=== PATIENT | male | born 1990 | race Caucasian/White ===

== ENCOUNTER 2016-08-01 12:55 | Emergency (ER) | payer OTHER ==
[2016-08-01 13:33] VITALS: BMI 25.8
[2016-08-01] MEDS ORDERED: SODIUM CHLORIDE 1,000 ML IV STA (16:39)
[2016-08-01] MEDS ORDERED: ACETAMINOPHEN 325 MG TABLET (FP) PO ONE (16:40)
--- NOTE | 2016-08-01 16:48 | PDOC ---
History of Present Illness - General History Source: Patient, Spouse - History of Present Illness Timing/Duration: reports: other Associated Symptoms: reports: chest pain/soreness, cough, fever/chills, muscle aches, shortness of breath. denies: earache, facial pain, headache, nasal congestion, nasal drainage, sore throat, wheezing <Lora Borjas - Last Filed: 08/01/16 19:02> <Gustabo Gorman - Last Filed: 08/01/16 21:01> - General Chief Complaint: SIRS, Suspected/Possible Stated Complaint: CHEST PAIN Time Seen by Provider: 08/01/16 16:37 Past History - Past Medical History Other medical history: PT DENIES MECICAL HX - Psycho/Social/Smoking Cessation Hx Suicidal Ideation: No Smoking History: Current some day smoker Have you smoked in the past 12 months: Yes Number of Cigarettes Smoked Daily: 0 Information on smoking cessation initiated: No Hx Alcohol Use: No Drug/Substance Use Hx: No Substance Use Type: None <Lora Borjas - Last Filed: 08/01/16 19:02> <Gustabo Gorman - Last Filed: 08/01/16 21:01> - Past Medical History Allergies/Adverse Reactions: Allergies Allergy/AdvReac Type Severity Reaction Status Date / Time No Known Allergies Allergy Verified 08/01/16 13:33 Home Medications: Ambulatory Orders NK [No Known Home Medication] 04/30/16 Review of Systems - Review of Systems Constitutional: Yes: Fever, Malaise, Weakness HEENTM: No: Ear Pain, Throat Pain Respiratory: Yes: Cough, Shortness of Breath. No: Wheezing Cardiac (ROS): Yes: Chest Pain. No: Lightheadedness ABD/GI: No: Diarrhea, Nausea, Vomiting : No: Dysuria Neurological: No: Headache, Dizziness <Lora Borjas Last Filed: 08/01/16 19:02> *Physical Exam - Vital Signs Last Vital Signs Temp Pulse Resp BP Pulse Ox 100.7 F H 102 H 112 H 127/73 94 L 08/01/16 13:29 08/01/16 13:29 08/01/16 13:29 08/01/16 13:29 08/01/16 13:29 - Physical Exam Comments: 08/01/16 16:47 ill appearing General Appearance: Yes: Appropriately Dressed HEENT: positive: Normal Voice Neck: positive: Supple. negative: Lymphadenopathy (R), Lymphadenopathy (L) Respiratory/Chest: positive: Lungs Clear, Normal Breath Sounds. negative: Respiratory Distress Cardiovascular: positive: S1, S2, Tachycardia Gastrointestinal/Abdominal: positive: Soft. negative: Tender Extremity: positive: Normal Inspection Integumentary: positive: Dry, Warm Neurologic: positive: Fully Oriented, Alert, Normal Mood/Affect <Lora Borjas - Last Filed: 08/01/16 19:02> - Vital Signs Last Vital Signs Temp Pulse Resp BP Pulse Ox 100.7 F H 102 H 112 H 127/73 94 L 08/01/16 13:29 08/01/16 13:29 08/01/16 13:29 08/01/16 13:29 08/01/16 13:29 <Gustabo Gorman - Last Filed: 08/01/16 21:01> ED Treatment Course - LABORATORY CBC & Chemistry Diagram: 08/01/16 16:50 08/01/16 16:50 - RADIOLOGY Radiology Studies Ordered: Category Date Time Status CHEST X-RAY PORTABLE* [RAD] Stat Radiology 08/01/16 16:40 Ordered <Lora Borjas - Last Filed: 08/01/16 19:02> - LABORATORY CBC & Chemistry Diagram: 08/01/16 16:50 08/01/16 16:50 - ADDITIONAL ORDERS Additional order review: Laboratory Results 08/01/16 08/01/16 08/01/16 16:50 16:50 16:39 Sodium 139 Potassium 4.0 Chloride 100 Carbon Dioxide 28 Anion Gap 11 BUN 13 Creatinine 0.8 Creat Clearance w eGFR > 60 Random Glucose 90 Lactic Acid 0.677 Calcium 8.5 Total Bilirubin 0.5 AST 27 ALT 42 Alkaline Phosphatase 109 Total Protein 7.2 Albumin 4.1 Urine Color Yellow Urine Appearance Clear Urine pH 5.0 Ur Specific [place] 1.024 Urine Protein Negative Urine Glucose (UA) Negative Urine Ketones 2+ H Urine Blood Negative Urine Nitrite Negative Urine Bilirubin Negative Urine Urobilinogen 2.0 e.u/dl Ur Leukocyte Esterase Negative 08/01/16 16:57 Influenza Types A,B Antigen (VALARIE) - Final Nasopharyngeal Swab - Final 08/01/16 16:50 RBC 4.96 MCV 90.4 MCHC 34.3 RDW 13.2 MPV 8.5 Neutrophils % 67.5 Lymphocytes % 19.9 Monocytes % 10.4 H Eosinophils % 0.6 Basophils % 1.6 - Medications Given in the ED: ED Medications Discontinued Medications Generic Name Dose Route Start Last Admin Trade Name Anastasia PRN Reason Stop Dose Admin Acetaminophen 650 mg 08/01/16 16:40 08/01/16 17:11 Tylenol - PO 08/01/16 16:41 650 mg ONCE ONE Administration Sodium Chloride 1,000 mls @ 1,000 mls/hr 08/01/16 16:39 08/01/16 16:58 Normal Saline - IV 08/01/16 17:38 1,000 mls/hr ASDIR STA Administration <Gustabo Gorman - Last Filed: 08/01/16 21:01> Progress Note - Progress Note Progress Note: CXR- NORMAL. NO ACUTE DISEASE. INFLUENZA- NEG. BLOOD WORK- WNL. PROB- VIRAL SYNDROME. D/C TO HOME. <Gustabo Gorman - Last Filed: 08/01/16 21:01> Medical Decision Making - Medical Decision Making 08/01/16 16:45 25-year-old male, no significant history, here with malaise with body aches, cough, pleuritic chest pain, ?sob, ever and chills that started suddenly 3 days ago. Daughter diagnosed with influenza recently. Denies GOLD, dizziness, photophobia, neck stiffness, nausea, vomiting or diarrhea. Has not been taking anything for symptoms See exam Viral syndrome Flu suspected, r/o PNA Pt mildly tachy, febrile and hypoxic to 94 % on RA and ill appearing -IVF -tylenol -labs -cxr -reassess 08/01/16 18:02 08/01/16 18:49 Labs, including influenza, wnl. Pt reports feeling better. CXR pending. Will rpt vitals <Lora Borjas - Last Filed: 08/01/16 19:02> *DC/Admit/Observation/Transfer <Lora Borjas - Last Filed: 08/01/16 19:02> - Discharge Dispostion Admit: No <Gustabo Gorman - Last Filed: 08/01/16 21:01> Diagnosis at time of Disposition: Viral infection - Discharge Dispostion Disposition: HOME Condition at time of disposition: Stable - Patient Instructions Printed Discharge Instructions: DI for Viral Syndrome Additional Instructions: FOLLOW UP WITH YOUR PRIMARY CARE PROVIDER. MOTRIN OR TYLENOL FOR PAIN/FEVER. DRINK LOTS OF FLUIDS. REST. Print Language: LAO - Post Discharge Activity Work/School Note: Back to Work
[2016-08-01 17:06] LABS: BASOPHIL 1.6 % (0-2.0); EOSINOPHIL 0.6 % (0-4.5); MCH 31.1 pg (25.7-33.7); MCHC 34.3 g/dl (32.0-35.9); MEAN CELL VOLUME 90.4 fl (80-96); MEAN PLT VOLUME 8.5 fl (7.5-11.1); NEUTROPHILS 67.5 % (42.8-82.8); PLATELET COUNT 191 K/MM3 (134-434); RDW 13.2 % (11.9-15.9); WHITE BLOOD COUNT 7.5 K/mm3 (4.0-10.0)
[2016-08-01] MEDS ORDERED: ACETAMINOPHEN 325 MG TABLET (FP) ONE (17:09)
[2016-08-01 17:42] LABS: ALBUMIN 4.1 g/dl (3.4-5.0); ALK PHOS 109 U/L (45-117); ANION GAP 11 (8-16); BILIRUBIN,TOTAL 0.5 mg/dL (0.2-1.0); CALCIUM 8.5 mg/dL (8.5-10.1); CO2 28 mmol/L (21-32); CREATININE 0.8 mg/dL (0.7-1.3); GLUCOSE,RANDOM 90 mg/dL (74-106); SGOT/AST 27 U/L (15-37); SGPT/ALT 42 U/L (12-78); TOT PROT 7.2 g/dl (6.4-8.2)
[2016-08-01 19:53] LABS: URINE APPEARANCE CLEAR; URINE BILIRUBIN NEGATIVE (NEGATIVE); URINE BLOOD NEGATIVE (NEGATIVE); URINE COLOR YELLOW; URINE GLUCOSE (UA) NEGATIVE (NEGATIVE); URINE KETONE 2+ (NEGATIVE); URINE LEUK ESTERASE NEGATIVE (NEGATIVE); URINE NITRITE NEGATIVE (NEGATIVE); URINE PROTEIN NEGATIVE (NEGATIVE); URINE UROBILINOGEN 2.0 E.U/dl E.U./dl (0.2-1.0)
[2016-08-01] MEDS ORDERED: AZITHROMYCIN 250 MG TABLET (FP) PO ONE (21:04)
[2016-08-01] MEDS ORDERED: predniSONE 20 MG TABLET (UD) PO ONE (21:05)
[2016-08-01] MEDS ORDERED: predniSONE 20 MG TABLET (UD) ONE (21:13)
[2016-08-01 21:31] VITALS: BP 125/72; PULSE 91; TEMP 98.9
== END 2016-08-01 21:30 | disposition home or self-care (01) ==
LOC: JER 12:55
PROC: 3E0337Z Introduction of Electrolytic and Water Balance Substance into Peripheral Vein, Percutaneous Approach (ICD-10-PCS; principal; 2016-08-01)
DX: B34.9 Viral infection, unspecified (principal)
CPT/HCPCS: 36415; 71020-TC; 80053; 81003; 83605; 85025; 87804; 96360; 99284-25

== ENCOUNTER 2018-12-12 23:12 | Inpatient (IN) | payer OTHER ==
[2018-12-12 23:54] VITALS: BMI 27.3
--- NOTE | 2018-12-13 01:30 | PDOC ---
History of Present Illness - General Chief Complaint: Constipation Stated Complaint: CONSTIPATION Time Seen by Provider: 12/13/18 01:29 - History of Present Illness Initial Comments: The pt is a 28M w/ no reported PMH who presents for evaluation of 5 days of abdominal pain. The pain is intermittent, epigastric/RUQ, worse after meals, cramping/sharp, radiates the the remainder of the abdomen, and is not alleviated by anything he can identify. He has not tried taking anything for his pain. He denies sick contacts or having similar symptoms before. Endorses constipation Denies fevers/chills, chest pain, SOB, vomiting, diarrhea, blood in his stool, or changes in sensation 12/13/18 01:39 Past History - Past Medical History Allergies/Adverse Reactions: Allergies Allergy/AdvReac Type Severity Reaction Status Date / Time No Known Allergies Allergy Verified 12/12/18 23:54 Home Medications: Ambulatory Orders Albuterol Sulfate Inhaler - [Ventolin HFA Inhaler -] 1 - 2 inh PO Q4H PRN #1 inhaler 08/01/16 Azithromycin [Zithromax -] 250 mg PO DAILY #4 tablet 08/01/16 predniSONE [Deltasone -] 40 mg PO DAILY #4 tablet 08/01/16 COPD: No - Suicide/Smoking/Psychosocial Hx Smoking History: Never smoked Have you smoked in the past 12 months: No Number of Cigarettes Smoked Daily: 0 Information on smoking cessation initiated: No Hx Alcohol Use: No Drug/Substance Use Hx: No Substance Use Type: None Review of Systems - Review of Systems Able to Perform ROS?: Yes Comments:: GENERAL/CONSTITUTIONAL: No fever or chills. No weakness HEAD, EYES, EARS, NOSE AND THROAT: No change in vision. No ear pain or discharge. No sore throat CARDIOVASCULAR: No chest pain or shortness of breath RESPIRATORY: Denies cough, hemoptysis GASTROINTESTINAL: No vomiting, diarrhea GENITOURINARY: No dysuria, frequency, or change in urination MUSCULOSKELETAL: No joint or muscle swelling or pain. No neck or back pain SKIN: No rash NEUROLOGIC: No headache, vertigo, loss of consciousness, or change in strength/ sensation ENDOCRINE: No increased thirst. No abnormal weight change HEMATOLOGIC/LYMPHATIC: No anemia, easy bleeding, or history of blood clots ALLERGIC/IMMUNOLOGIC: No hives or skin allergy 12/13/18 01:29 Is the patient limited Azeri proficient: No *Physical Exam - Vital Signs Last Vital Signs Temp Pulse Resp BP Pulse Ox 98.8 F 77 16 115/72 100 12/12/18 23:53 12/12/18 23:53 12/12/18 23:53 12/12/18 23:53 12/12/18 23:53 - Physical Exam Comments: GENERAL: Awake, alert, and oriented to person/place/time, in no acute distress HEAD: No signs of trauma, normocephalic, atraumatic EYES: PERRLA, EOMI, sclera anicteric, conjunctiva clear ENT: Hearing grossly normal, nares patent, oropharynx clear without exudates. Moist mucosa LUNGS: No distress, speaks full sentences, clear to auscultation bilaterally HEART: Regular rate and rhythm, normal S1 and S2, no murmurs appreciated, peripheral pulses normal and equal bilaterally ABDOMEN: Soft, RUQ/epigastric/R-sided abdominal pain w/o rebound or guarding, + BS EXTREMITIES: Normal inspection, Normal range of motion, no edema. No clubbing or cyanosis NEUROLOGICAL: Cranial nerves II through XII grossly intact. Normal speech, no focal sensorimotor deficits SKIN: Warm, Dry 12/13/18 01:30 ED Treatment Course - LABORATORY CBC & Chemistry Diagram: 12/13/18 02:12 12/13/18 02:12 Medical Decision Making - Medical Decision Making The pt is a 28M w/ no reported PMH who presents for evaluation of 5 days of a intermittent epigastric/RUQ abdmonial pain w/ associated nausea w/o vomiting Ddx: biliary disease, gastritis, viral syndrome, pancreatitis ED Course CMP, CBC, Lipase RUQ US IVF, Ofirmev, Zofran 12/13/18 01:44 Leukocytosis of 14 US w/o acute pathology 12/13/18 02:45 CT notable for acute appendicitis General surgery consulted Will give Unasyn 3g IV once Plan for admission 12/13/18 03:42 *DC/Admit/Observation/Transfer Diagnosis at time of Disposition: Abdominal pain Qualifiers: Abdominal location: epigastric Qualified Code(s): R10.13 - Epigastric pain Acute appendicitis Qualifiers: Acute appendicitis type: with localized peritonitis Appendicitis gangrene presence: unspecified whether gangrene present Appendicitis perforation presence : unspecified whether perforation present Appendicitis abscess presence: without abscess Qualified Code(s): K35.30 - Acute appendicitis with localized peritonitis, without perforation or gangrene - Discharge Dispostion Condition at time of disposition: Good Decision to Admit order: Yes - Referrals Referrals: [facility] [Provider Group] German Ron MD [Staff Physician] - - Patient Instructions Printed Discharge Instructions: DI for Abdominal Pain-Adult Additional Instructions: You were seen in the Emergency Department for evaluation of abdominal pain. Your labs were unremarkable and your imaging was negative for acute pathology. Review the handout provided at discharge. Follow up with your primary care and gastroenterology referrals. Return to the Emergency Department if you develop fevers/chills, chest pain, inability to tolerate food, worsening symptoms, or any new/concerning symptoms. Se lo atendi en el servicio de urgencias para evaluar el dolor abdominal. Paola laboratorios fueron normales y flores imagen fue negativa para patologa aguda. Revise el folleto provisto al momento del effie. Aracely un seguimiento con paola derivaciones de atencin primaria y gastroenterologa. Regrese al Departamento de Emergencias si presenta fiebre / escalofros, dolor en el pecho, incapacidad para tolerar los alimentos, empeoramiento de los sntomas o cualquier sntoma nuevo o relacionado con ellos. Print Language: WELSH - Post Discharge Activity
--- NOTE | 2018-12-13 01:30 | PDOC ---
Attending Attestation - Resident Resident Name: ZaireLeif almeida - ED Attending Attestation I have performed the following: I have examined & evaluated the patient, The case was reviewed & discussed with the resident, I agree w/resident's findings & plan - HPI HPI: 12/13/18 02:58 28 yo male with right sided abdominal pain - Physicial Exam PE: 12/13/18 02:59 GENERAL: Awake, in no acute distress HEAD: No signs of trauma EYES: ENT:clear without exudates. Moist mucosa NECK: Normal ROM, LUNGS:. Normal work of breathing. HEART: Regular rate and rhythm, ABDOMEN: Soft, nondistended , rlq/Mc Burny's point tenderness with voluntary guarding CHEST WALL: BACK: No midline tenderness. EXTREMITIES:. No erythema, or tenderness NEUROLOGICAL: Alert, SKIN: Warm, Dry - Medical Decision Making 12/13/18 02:59 28 yo male with rlq pain and elevated WBC count CT scan abd/pelvis IVF/antacids/antiemetics
[2018-12-13] MEDS ORDERED: ONDANSETRON 4 MG/2 ML VIAL IVPUSH ONE ×2 (01:38→01:45)
[2018-12-13] MEDS ORDERED: SODIUM CHLORIDE 0.9% 500 ML INFUS.BAG IV ONE (01:38)
[2018-12-13] MEDS ORDERED: FAMOTIDINE 20 MG/50 ML IVPB 20 MG/50 ML MG IVPB ONE ×2 (01:38→01:48)
[2018-12-13] MEDS ORDERED: MAG HYDROX/AL HYDROX/SIMETH 30 ML UNIT-DOSE CUP PO ONE (01:38)
[2018-12-13] MEDS ORDERED: ONDANSETRON 4 MG/2 ML VIAL ONE (01:48)
[2018-12-13] MEDS ORDERED: MAG HYDROX/AL HYDROX/SIMETH 30 ML UNIT-DOSE CUP ONE (01:48)
[2018-12-13 02:22] LABS: BASO % 0.9 % (0-2.0); EOS % 0.7 % (0-4.5); HEMATOCRIT 43.4 % (35.4-49); HEMOGLOBIN 15.2 GM/dL (11.7-16.9); LYMPH % 13.4 % (8-40); MCH 31.5 pg (25.7-33.7); MCHC 34.9 g/dl (32.0-35.9); MEAN CELL VOLUME 90.1 fl (80-96); MEAN PLT VOLUME 8.3 fl (7.5-11.1); MONO % 6.3 % (3.8-10.2); NEUT % 78.7 % (42.8-82.8); PLATELET COUNT 237 K/MM3 (134-434); RBC 4.82 M/mm3 (4.00-5.60); RDW 13.3 % (11.9-15.9); WHITE BLOOD COUNT 14.3 K/mm3 (4.0-10.0)
[2018-12-13 02:39] LABS: BILIRUBIN,TOTAL 0.4 mg/dL (0.2-1); CREATININE 0.8 mg/dL (0.55-1.3); POTASSIUM 4.5 mmol/L (3.5-5.1); TOT PROT 7.2 g/dl (6.4-8.2)
[2018-12-13] MEDS ORDERED: AMPICILLIN NA/SULBACTAM NA 3 GM in SODIUM CHLORIDE 100 ML IVPB ONE (03:47)
--- NOTE | 2018-12-13 04:50 | PN ---
Teaching Attending Note Name of Resident: Zeyad Mujica ATTENDING PHYSICIAN STATEMENT I saw and evaluated the patient. I reviewed the resident's note and discussed the case with the resident. I agree with the resident's findings and plan as documented. SUBJECTIVE: Patient is a 28 year old man with PMH of Tobacco use and asthma who presents for evaluation of 5 days of abdominal pain. The pain is intermittent, epigastric /RUQ, worse after meals and any movement, cramping/sharp, radiates to the remainder of the abdomen, and is not alleviated by anything he can identify. He has not tried taking anything for his pain. He denies any recent travel, consumption of unusual/street food or having similar symptoms before. Had contact yesterday with a neighbour with fever. Has nausea and constipation. Denies fevers, chills, chest pain, SOB, vomiting, diarrhea, or blood in his stool. OBJECTIVE: Alert Vital Signs Period Temp Pulse Resp BP Sys/Mccarthy Pulse Ox Last 24 Hr 98.8 F 77 16 115/72 100 HEENT: No Jaundice, eye redness or discharge, PERRLA, EOMI. Normocephalic, atraumatic. External ears are normal and hearing is grossly intact. No nasal discharge. Neck: Supple, nontender. No palpable adenopathy or thyromegaly. No JVD Chest: Good effort. Clear to auscultation and percussion. Heart: Regular. No S3, rub or murmur Abdomen: Not distended, soft, RLQ tenderness and no HSM. No rebound or guarding. Normal bowel sounds. Ext: Peripheral pulses intact. No leg edema. Skin: Warm and dry. No petechiae, rash or ecchymosis. Neuro: Alert. Oriented x3. CN 2-12 grossly intact. Sensation grossly intact in all four extremities and DTR are symmetric. Psych: Appropriate mood and affect. Good insight. Current Medications Generic Name Dose Route Start Last Admin Trade Name Freq PRN Reason Stop Dose Admin Lactated Ringer's 1,000 mls @ 100 mls/hr 12/13/18 05:30 12/13/18 05:43 Lactated Ringers Solution IV 100 mls/hr ASDIR RUSLAN Administration Pantoprazole Sodium 40 mg 12/13/18 10:00 Protonix Iv IVPUSH DAILY [facility] Home Medications Medication Instructions Recorded Albuterol Sulfate Inhaler - 1 - 2 inh PO Q4H PRN #1 inhaler 08/01/16 [Ventolin HFA Inhaler -] Azithromycin [Zithromax -] 250 mg PO DAILY #4 tablet 08/01/16 predniSONE [Deltasone -] 40 mg PO DAILY #4 tablet 08/01/16 Abnormal Lab Results 12/13/18 12/13/18 02:12 02:12 WBC 14.3 H Absolute Neuts (auto) 11.2 H Anion Gap 5 L Alkaline Phosphatase 145 H ASSESSMENT AND PLAN: 1. Appendicitis - CT scan of abdomen/pelvis showed appendicitis. He got a dose of Unasyn in the ER. Will keep him NPO, give IV fluids, get EKG and INR and consult surgery. 2. Tobacco Use Counseled on risks associated with tobacco use. We will provide patient all the necessary assistance to facilitate smoking cessation and prescribe Nicotine patch. 3. DVT prophylaxis - SCD. Resume Lovenox 40 mg SQ q 24 hours post surgery. 4. Advance directives - Full code
--- NOTE | 2018-12-13 05:31 | HP ---
CHIEF COMPLAINT: Abdominal Pain PCP: None HISTORY OF PRESENT ILLNESS: Pt. is a 28 y.o. Burundian speaking M w/o PMHx. presenting with 5 days of abdominal pain and associated constipation. Pt. states that he has been feeling nauseous but denies any vomiting. Pt. states that the pain is constant and non-radiating, worse in the LLQ, periumbilical region and the epigastrium. Pt. states that moving around and eating have made the pain worse. Pt. denies any shortness of breath, lightheadedness, dizziness, blood in the stool or urine, or any other symptoms. ER course was notable for: (1)Unasyn 3g IV, IV Ofirmev, Zofran (2) RUQ US, Abd. CT (3) IVF, consult Dr. Luis Recent Travel: No PAST MEDICAL HISTORY: None PAST SURGICAL HISTORY: None Social History: Smoking: Few Cigs/ week Alcohol: 3-4 beers/ week Drugs: Denies Family History: Father DM Allergies No Known Allergies Allergy (Verified 12/12/18 23:54) HOME MEDICATIONS: Home Medications Medication Instructions Recorded Albuterol Sulfate Inhaler - 1 - 2 inh PO Q4H PRN #1 inhaler 08/01/16 [Ventolin HFA Inhaler -] Azithromycin [Zithromax -] 250 mg PO DAILY #4 tablet 08/01/16 predniSONE [Deltasone -] 40 mg PO DAILY #4 tablet 08/01/16 REVIEW OF SYSTEMS As above PHYSICAL EXAMINATION Vital Signs - 24 hr 12/12/18 23:53 Temperature 98.8 F Pulse Rate 77 Respiratory 16 Rate Blood Pressure 115/72 O2 Sat by Pulse 100 Oximetry (%) GENERAL: Awake, alert, and fully oriented, in no acute distress. HEAD: Normal with no signs of trauma. EYES: Extraocular movements intact, sclera anicteric, conjunctiva clear. EARS, NOSE, THROAT: Ears normal, nares patent, oropharynx clear without exudates. Moist mucous membranes. NECK: Normal range of motion LUNGS: Breath sounds equal, clear to auscultation bilaterally. No wheezes, and no crackles. No accessory muscle use. HEART: Regular rate and rhythm, normal S1 and S2 without murmur ABDOMEN: Soft, RLQ, periumbilical and epigastric tenderness, not distended, hypoactive bowel sounds, guarding UPPER EXTREMITIES: 2+ radial pulses, warm, well-perfused. No cyanosis. No clubbing. No peripheral edema. LOWER EXTREMITIES: Warm, well-perfused. No calf tenderness. No peripheral edema. NEUROLOGICAL: Normal speech. Gait not assessed PSYCHIATRIC: Cooperative. Good eye contact. Appropriate mood and affect. SKIN: Warm, dry, normal turgor Laboratory Results - last 24 hr 12/13/18 12/13/18 02:12 02:12 WBC 14.3 H RBC 4.82 Hgb 15.2 Hct 43.4 MCV 90.1 MCH 31.5 MCHC 34.9 RDW 13.3 Plt Count 237 D MPV 8.3 Absolute Neuts (auto) 11.2 H Neutrophils % 78.7 Lymphocytes % 13.4 D Monocytes % 6.3 Eosinophils % 0.7 Basophils % 0.9 Nucleated RBC % 0 Sodium 139 Potassium 4.5 Chloride 104 Carbon Dioxide 30 Anion Gap 5 L BUN 13.0 Creatinine 0.8 Est GFR (CKD-EPI)AfAm 139.91 Est GFR (CKD-EPI)NonAf 120.72 Random Glucose 106 Calcium 9.0 Total Bilirubin 0.4 AST 22 ALT 38 Alkaline Phosphatase 145 H Total Protein 7.2 Albumin 4.0 Lipase 135 ASSESSMENT/PLAN: Pt. is a 28 y.o. Burundian speaking M w/o PMHx. presenting with 5 days of abdominal pain and associated constipation. #Abdominal pain 2/[address] A/P: acute appendicitis, appendix dilated to 9mm, inflamed, with stones, fatty liver Abd. US: fatty liver, no acute pathology, CBD: 4mm (non-dilated) Surgery Consult (Dr. Luis) appreciated Given Unasyn in ED f/u EKG f/u PT/INR start start Protonix 40mg IV IVF Type and Screen #FEN LR @ 100ml/hr monitor and replete electrolytes as needed NPO #DVT Ppx. TEDs Visit type - Emergency Visit Emergency Visit: Yes ED Registration Date: 12/13/18 Care time: The patient presented to the Emergency Department on the above date and was hospitalized for further evaluation of their emergent condition. - New Patient This patient is new to me today: Yes Date on this admission: 12/13/18 - Critical Care Critical Care patient: No
[2018-12-13] MEDS: LACTATED RINGERS SOLUTION 1,000 ML IV SCH ×2 (05:43→13:20)
[2018-12-13 06:09] LABS: BASO % 0.5 % (0-2.0); EOS % 0.9 % (0-4.5); HEMATOCRIT 40.5 % (35.4-49); HEMOGLOBIN 14.1 GM/dL (11.7-16.9); LYMPH % 16.1 % (8-40); MCH 31.2 pg (25.7-33.7); MCHC 34.8 g/dl (32.0-35.9); MEAN CELL VOLUME 89.7 fl (80-96); MONO % 6.8 % (3.8-10.2); NEUT % 75.7 % (42.8-82.8); PLATELET COUNT 223 K/MM3 (134-434); RBC 4.51 M/mm3 (4.00-5.60); RDW 12.9 % (11.9-15.9); WHITE BLOOD COUNT 11.5 K/mm3 (4.0-10.0)
[2018-12-13 06:22] LABS: INR 1.05 (0.83-1.09); PROTHROMBIN TIME (PATIENT) 12.4 SEC (9.7-13.0)
[2018-12-13 06:43] LABS: BLOOD UREA NITROGEN 10.5 mg/dL (7-18); CALCIUM 8.3 mg/dL (8.5-10.1); CREATININE 0.7 mg/dL (0.55-1.3); MAGNESIUM 2.5 mg/dL (1.8-2.4); PHOSPHOROUS 3.5 mg/dL (2.5-4.9); POTASSIUM 4.3 mmol/L (3.5-5.1)
--- NOTE | 2018-12-13 09:00 | CONSULT ---
Consult Consult Specialty:: General Surgery Reason for Consultation:: acute appendicitis - History of Present Illness Chief Complaint: abdoiminal pain History of Present Illness: 28 yo male no significant PMH Tobacco use and asthma who presents for evaluation of 5 days of abdominal pain. The pain is intermittent, epigastric/RUQ , worse after meals and any movement, cramping/sharp, radiates to the remainder of the abdomen, and is not alleviated by anything he can identify. He has not tried taking anything for his pain. He denies any recent travel, consumption of unusual/street food or having similar symptoms before. Had contact yesterday with a neighbour with fever. Has nausea and constipation. Denies fevers, chills , chest pain, SOB, vomiting, diarrhea, or blood in his stool. we were called to assess. - History Source History Provided By: Patient, Medical Record Limitations to Obtaining History: No Limitations - Alcohol/Substance Use Hx Alcohol Use: No History of Substance Use: reports: None - Smoking History Smoking history: Never smoked Have you smoked in the past 12 months: No Aproximately how many cigarettes per day: 0 - Social History Usual Living Arrangement: With Spouse ADL: Independent History of Recent Travel: No Home Medications - Allergies Allergies/Adverse Reactions: Allergies Allergy/AdvReac Type Severity Reaction Status Date / Time No Known Allergies Allergy Verified 12/12/18 23:54 Review of Systems - Review of Systems Constitutional: reports: Loss of Appetite. denies: Chills, Fever Eyes: denies: Blind Spots, Recent Change in Vision HENT: denies: Difficult Swallowing, Throat Pain Neck: denies: Decreased ROM, Pain on Movement Cardiovascular: denies: Chest Pain, Palpitations Respiratory: denies: Cough, SOB Gastrointestinal: reports: Abdominal Pain. denies: Bloating, Constipation, Diarrhea Genitourinary: denies: Burning, Discharge, Dysuria Breasts: reports: No Symptoms Reported. denies: Pain Musculoskeletal: denies: Joint Swelling, Muscle Pain Integumentary: denies: Blister, Lump Neurological: denies: Seizure, Syncope Endocrine: denies: Unexplained Weight Gain, Unexplained Weight Loss Hematology/Lymphatic: denies: Easily Bruised, Excessive Bleeding Psychiatric: denies: Anxiety, Depression Physical Exam Vital Signs: Vital Signs Temperature 98.3 F 12/13/18 06:45 Pulse Rate 71 12/13/18 06:45 Respiratory Rate 20 12/13/18 06:01 Blood Pressure 102/70 12/13/18 07:05 O2 Sat by Pulse Oximetry (%) 100 12/13/18 07:33 Constitutional: Yes: Well Nourished, No Distress, Calm Eyes: Yes: Conjunctiva Clear, EOM Intact HENT: Yes: Atraumatic, Normocephalic Neck: Yes: Supple, Trachea Midline Cardiovascular: Yes: Regular Rate and Rhythm, S1, S2 Respiratory: Yes: Regular, CTA Bilaterally Gastrointestinal: Yes: Normal Bowel Sounds, Soft, Tenderness ...Rectal Exam: Yes: Deferred Renal/: No: CVA Tenderness - Left, CVA Tenderness - Right Breast(s): No: Breast Implants, Discharge from Nipple Musculoskeletal: No: Joint Stiffness, Muscle Pain Extremities: No: Cool, Cyanosis Edema: No Peripheral Pulses WNL: Yes Integumentary: No: Jaundice, Skin Tear, Tattoos Neurological: Yes: Alert, Oriented Psychiatric: Yes: Alert, Oriented Labs: CBC, BMP 12/13/18 06:00 12/13/18 06:00 Problem List - Problems (1) Acute appendicitis Assessment/Plan: 28yo male with acute appendicitis NPO and IVF hydration IV antibiotics Discussed with patient risks, benefits and alternatives of laparoscopic possible open appendectomy, including but not limited to bleeding, infection, injury to adjacent structures, leak or injury, intraabdominal abscess, incisional hernia, need for further procedures, ; alternatives include antibiotics, delayed or no surgery - risks of this include failure of nonoperative therapy, perforation, sepsis, recurrence, . Patient desires to proceed with operation - will take to OR for above. Informed consent signed for same. Thank you for the opportunity to participate in the care of this patient. Code(s): K35.80 - UNSPECIFIED ACUTE APPENDICITIS Qualifiers: Acute appendicitis type: with localized peritonitis Appendicitis gangrene presence: unspecified whether gangrene present Appendicitis perforation presence: unspecified whether perforation present Appendicitis abscess presence: without abscess Qualified Code(s): K35.30 - Acute appendicitis with localized peritonitis, without perforation or gangrene (2) Abdominal pain in male Code(s): R10.9 - UNSPECIFIED ABDOMINAL PAIN (3) Leukocytosis Code(s): D72.829 - ELEVATED WHITE BLOOD CELL COUNT, UNSPECIFIED Qualifiers: Leukocytosis type: bandemia Qualified Code(s): D72.825 - Bandemia (4) Nausea Code(s): R11.0 - NAUSEA
[2018-12-13] MEDS ORDERED: PANTOPRAZOLE SODIUM 40 MG VIAL IVPUSH SCH (10:00)
[2018-12-13] MEDS ORDERED: PANTOPRAZOLE SODIUM 40 MG/100 ML BAG IVPB ONE (10:19)
--- NOTE | 2018-12-13 10:22 | PN ---
Teaching Attending Note Name of Resident: Sherita Alvarado ATTENDING PHYSICIAN STATEMENT I saw and evaluated the patient. I reviewed the resident's note and discussed the case with the resident. I agree with the resident's findings and plan as documented. SUBJECTIVE: Mr Seng Beckford complains of pain but otherwise feels well. Denies cp and sob. OBJECTIVE: Last Vital Signs Temp Pulse Resp BP Pulse Ox 36.8 C 71 20 102/70 100 12/13/18 06:45 12/13/18 06:45 12/13/18 06:01 12/13/18 07:05 12/13/18 07:33 Gen: nad Pulm: ctab w/o w/r/r CV: rrr w/o m/r/g Abd: hypoactive bs, TTP in RLQ Ext: no c/c/e CBC, BMP 12/13/18 06:00 12/13/18 06:00 ASSESSMENT AND PLAN: Problem List - Problems (1) Acute appendicitis Assessment/Plan: -acute appendicitis found on CT scan -surgery consulted -await recommendations concerning surgical intervention -reviewed most recent literature about antibiotic use for acute appendicitis -has received 1 dose of unasyn in the ED -as long as appendectomy occurs within 12 hours (by 1600), no further antibiotics needed -monitor, medically cleared for surgery Code(s): K35.80 - UNSPECIFIED ACUTE APPENDICITIS Qualifiers: Acute appendicitis type: with localized peritonitis Appendicitis gangrene presence: unspecified whether gangrene present Appendicitis perforation presence: unspecified whether perforation present Appendicitis abscess presence: without abscess Qualified Code(s): K35.30 - Acute appendicitis with localized peritonitis, without perforation or gangrene
[2018-12-13] MEDS ORDERED: ACETAMINOPHEN 1000 MG/100 ML VIAL (NON FORMULARY) IVPB PRN (10:36)
[2018-12-13] MEDS ORDERED: ONDANSETRON 4 MG/2 ML VIAL IVPUSH PRN ×3 (10:37→16:36)
--- NOTE | 2018-12-13 12:30 | EKG ---
Test Reason : Blood Pressure : / mmHG Vent. Rate : 068 BPM Atrial Rate : 068 BPM P-R Int : 146 ms QRS Dur : 084 ms QT Int : 380 ms P-R-T Axes : 040 039 021 degrees QTc Int : 404 ms NORMAL SINUS RHYTHM EARLY REPOLARIZATION NORMAL ECG NO PREVIOUS ECGS AVAILABLE Confirmed by ROSA BENZ MD ([id number]) on 12/13/2018 12:30:19 PM Referred By: Confirmed By:ROSA BENZ MD
[2018-12-13] MEDS: AMPICILLIN NA/SULBACTAM NA 3 GM in SODIUM CHLORIDE 100 ML IVPB SCH ×2 (13:19→13:21)
[2018-12-13] MEDS ORDERED: PROMETHAZINE HCL 25 MG/1 ML VIAL IVPUSH PRN (14:36)
[2018-12-13] MEDS ORDERED: fentaNYL CITRATE 250 MCG/5 ML VIAL ONE (14:38)
[2018-12-13] MEDS ORDERED: LIDOCAINE HCL/PF 2% SDV 5ML VIAL ONE (14:39)
[2018-12-13] MEDS ORDERED: PROPOFOL 20 ML ONE (14:39)
[2018-12-13] MEDS ORDERED: ROCURONIUM BROMIDE 50 MG/5 ML VIAL ONE ×2 (14:39→15:51)
[2018-12-13] MEDS ORDERED: MIDAZOLAM HCL 2 MG/2 ML SINGLE DOSE VIAL ONE (14:39)
[2018-12-13] MEDS ORDERED: SUCCINYLCHOLINE CHLORIDE 200 MG/10 ML SYRINGE ONE (14:39)
[2018-12-13] MEDS ORDERED: BUPIVACAINE HCL/PF 0.5% (5MG/ML) 10 ML VIAL ONE (14:45)
[2018-12-13] MEDS ORDERED: LACTATED RINGERS SOLUTION 1,000 ML IV SCH ×2 (14:45→16:36)
[2018-12-13] MEDS ORDERED: BENZOIN TINCTURE SWABSTICK TP ONE (14:45)
[2018-12-13] MEDS ORDERED: ceFAZolin SODIUM 1 GM VIAL ONE (15:19)
--- NOTE | 2018-12-13 15:29 | PN ---
Physical Exam: SUBJECTIVE: Patient seen and examined resting in bed nad. afebrile hemodynamically stable. complains of mild abd pain , denies n/v/d/c/f/c. awaiting surgery OBJECTIVE: Vital Signs Period Temp Pulse Resp BP Sys/Mccarthy Pulse Ox Last 24 Hr 98.1 F-98.8 F 63-77 16-20 94-115/50-72 97-100 GENERAL: The patient is awake, alert, and fully oriented, in no acute distress. HEAD: Normal with no signs of trauma. EYES: PERRL, extraocular movements intact, sclera anicteric, conjunctiva clear. No ptosis. ENT: moist mucous membranes. NECK: supple. LUNGS: Breath sounds equal, clear to auscultation bilaterally HEART: Regular rate and rhythm, S1, S2 ABDOMEN: Soft, mildly tender diffusely, nondistended, globally reduced bowel sounds, voluntary guarding EXTREMITIES: 2+ pulses, warm, well-perfused, no edema. NEUROLOGICAL: Cranial nerves II through XII grossly intact. Normal speech, gait not observed. PSYCH: Normal mood, normal affect. SKIN: Warm, dry Laboratory Results - last 24 hr 12/13/18 12/13/18 12/13/18 02:12 02:12 06:00 WBC 14.3 H 11.5 H RBC 4.82 4.51 Hgb 15.2 14.1 Hct 43.4 40.5 MCV 90.1 89.7 MCH 31.5 31.2 MCHC 34.9 34.8 RDW 13.3 12.9 Plt Count 237 D 223 MPV 8.3 8.0 Absolute Neuts (auto) 11.2 H 8.7 H Neutrophils % 78.7 75.7 Lymphocytes % 13.4 D 16.1 D Monocytes % 6.3 6.8 Eosinophils % 0.7 0.9 Basophils % 0.9 0.5 Nucleated RBC % 0 0 PT with INR INR Sodium 139 Potassium 4.5 Chloride 104 Carbon Dioxide 30 Anion Gap 5 L BUN 13.0 Creatinine 0.8 Est GFR (CKD-EPI)AfAm 139.91 Est GFR (CKD-EPI)NonAf 120.72 Random Glucose 106 Calcium 9.0 Phosphorus Magnesium Total Bilirubin 0.4 AST 22 ALT 38 Alkaline Phosphatase 145 H Total Protein 7.2 Albumin 4.0 Lipase 135 Blood Type Antibody Screen 12/13/18 12/13/1819 06:00 06:00 06:00 WBC RBC Hgb Hct MCV MCH MCHC RDW Plt Count MPV Absolute Neuts (auto) Neutrophils % Lymphocytes % Monocytes % Eosinophils % Basophils % Nucleated RBC % PT with INR 12.40 INR 1.05 Sodium 138 Potassium 4.3 Chloride 106 Carbon Dioxide 28 Anion Gap 4 L BUN 10.5 Creatinine 0.7 Est GFR (CKD-EPI)AfAm 147.81 Est GFR (CKD-EPI)NonAf 127.53 Random Glucose 103 Calcium 8.3 L Phosphorus 3.5 Magnesium 2.5 H Total Bilirubin AST ALT Alkaline Phosphatase Total Protein Albumin Lipase Blood Type O POSITIVE Antibody Screen Negative 12/13/18 12/13/18 06:33 09:40 WBC RBC Hgb Hct MCV MCH MCHC RDW Plt Count MPV Absolute Neuts (auto) Neutrophils % Lymphocytes % Monocytes % Eosinophils % Basophils % Nucleated RBC % PT with INR INR Sodium Potassium Chloride Carbon Dioxide Anion Gap BUN Creatinine Est GFR (CKD-EPI)AfAm Est GFR (CKD-EPI)NonAf Random Glucose Calcium Phosphorus Magnesium Total Bilirubin AST ALT Alkaline Phosphatase Total Protein Albumin Lipase Blood Type O POSITIVE O POSITIVE Antibody Screen Negative Active Medications Generic Name Dose Route Start Last Admin Trade Name Freq PRN Reason Stop Dose Admin Acetaminophen 1,000 mg 12/13/18 10:36 Ofirmev Injection - IVPB Q6H PRN PAIN 1-3 Fentanyl 50 mcg 12/13/18 14:36 Sublimaze Injection - IVPUSH [id number] PRN PAIN-PACU ORDER X 4 DOSES ONLY Lactated Ringer's 1,000 mls @ 100 mls/hr 12/13/18 05:30 12/13/18 13:20 Lactated Ringers Solution IV 100 mls/hr ASDIR RUSLAN Administration Lactated Ringer's 1,000 mls @ 125 mls/hr 12/13/18 14:45 Lactated Ringers Solution IV ASDIR RUSLAN Ondansetron HCl 4 mg 12/13/18 10:37 Zofran Injection IVPUSH Q4H PRN NAUSEA AND/OR VOMITING Ondansetron HCl 4 mg 12/13/18 14:36 Zofran Injection IVPUSH Q6H PRN NAUSEA AND/OR VOMITING Pantoprazole Sodium 40 mg 12/13/18 10:00 12/13/18 10:21 Protonix Iv IVPUSH 40 mg DAILY RUSLAN Administration Promethazine HCl 12.5 mg 12/13/18 14:36 Phenergan Injection - IVPUSH Q6H PRN NAUSEA-FOR RESCUE AFTER 15 MIN ASSESSMENT/PLAN: Pt. is a 28 y.o. Citizen Of [place] speaking M w/o PMHx. presenting with 5 days of abdominal pain and associated constipation. acute appendicitis CT A/P: acute appendicitis, with stones, appendix dilated to 9mm, inflamed, with stones, fatty liver Abd. US: fatty liver, no acute pathology, CBD: 4mm (non-dilated) s/p Unasyn: one dose sufficient pre op -LR hydration -PPI -NPO -awaiting OR with Dr. Luis Problem List - Problems (1) Abdominal pain Code(s): R10.9 - UNSPECIFIED ABDOMINAL PAIN Qualifiers: Abdominal location: epigastric Qualified Code(s): R10.13 - Epigastric pain (2) Acute appendicitis Code(s): K35.80 - UNSPECIFIED ACUTE APPENDICITIS Qualifiers: Acute appendicitis type: with localized peritonitis Appendicitis gangrene presence: unspecified whether gangrene present Appendicitis perforation presence: unspecified whether perforation present Appendicitis abscess presence: without abscess Qualified Code(s): K35.30 - Acute appendicitis with localized peritonitis, without perforation or gangrene Visit type - Emergency Visit Emergency Visit: Yes ED Registration Date: 12/13/18 Care time: The patient presented to the Emergency Department on the above date and was hospitalized for further evaluation of their emergent condition. - New Patient This patient is new to me today: Yes Date on this admission: 12/13/18 - Critical Care Critical Care patient: No - Discharge Referral Referred to [facility] Med P.C.: No
[2018-12-13] MEDS ORDERED: NEOSTIGMINE METHYLSULFATE 0.5 MG/1 ML - 10 ML MDV ONE (15:37)
[2018-12-13] MEDS ORDERED: GLYCOPYRROLATE 0.2 MG/1 ML VIAL ONE (15:38)
[2018-12-13] MEDS ORDERED: ceFAZolin 2 GRAM PREMIX BAG IVPB ONE (15:45)
[2018-12-13] MEDS ORDERED: BUPIVACAINE HCL/PF 0.5% (5MG/ML) 10 ML VIAL IJ ONE (15:45)
--- NOTE | 2018-12-13 16:13 | OP ---
Operative Note - Note: Operative Date: 12/13/18 Pre-Operative Diagnosis: acute appendicitis Operation: laparoscopic appendectomy Post-Operative Diagnosis: Same as Pre-op Surgeon: Dash Luis Anesthesiologist/BANDOLEER PACKER: Dilia Armenta Anesthesia: General Specimens Removed: appendix Estimated Blood Loss (mls): 5 Fluid Volume Replaced (mls): 500 Operative Report Dictated: Yes
[2018-12-13] MEDS: ACETAMINOPHEN 1000 MG/100 ML VIAL (NON FORMULARY) IVPB PRN ×2 (17:57→23:22)
[2018-12-14 07:42] LABS: BASO % 0.4 % (0-2.0); EOS % 1.2 % (0-4.5); HEMATOCRIT 41.4 % (35.4-49); HEMOGLOBIN 14.3 GM/dL (11.7-16.9); LYMPH % 11.6 % (8-40); MCH 31.1 pg (25.7-33.7); MCHC 34.6 g/dl (32.0-35.9); MEAN CELL VOLUME 89.7 fl (80-96); MEAN PLT VOLUME 8.6 fl (7.5-11.1); MONO % 6.1 % (3.8-10.2); NEUT % 80.7 % (42.8-82.8); PLATELET COUNT 247 K/MM3 (134-434); RBC 4.62 M/mm3 (4.00-5.60); RDW 12.9 % (11.9-15.9); WHITE BLOOD COUNT 10.9 K/mm3 (4.0-10.0)
[2018-12-14 07:48] LABS: ALBUMIN 3.4 g/dl (3.4-5.0); BILIRUBIN,TOTAL 0.8 mg/dL (0.2-1); BLOOD UREA NITROGEN 9.2 mg/dL (7-18); CALCIUM 8.7 mg/dL (8.5-10.1); CREATININE 0.8 mg/dL (0.55-1.3); POTASSIUM 4.1 mmol/L (3.5-5.1); TOT PROT 6.5 g/dl (6.4-8.2)
--- NOTE | 2018-12-14 09:15 | PN ---
Progress Note, Physician Chief Complaint: abdominal pain History of Present Illness: 28 yo male no significant PMH Tobacco use and asthma who presents for evaluation of 5 days of abdominal pain. He has been stable post op. He is tolerating diet and voiding. - Current Medication List Current Medications: Active Medications Acetaminophen (Ofirmev Injection -) 1,000 mg IVPB Q6H PRN PRN Reason: PAIN 1-3 Last Admin: 12/13/18 23:22 Dose: 1,000 mg Lactated Ringer's (Lactated Ringers Solution) 1,000 mls @ 100 mls/hr IV ASDIR RUSLAN Last Admin: 12/13/18 17:03 Dose: 100 mls Ondansetron HCl (Zofran Injection) 4 mg IVPUSH Q4H PRN PRN Reason: NAUSEA AND/OR VOMITING Pantoprazole Sodium (Protonix Iv) 40 mg IVPUSH DAILY [facility] - Objective Vital Signs: Vital Signs Temperature 98.4 F 12/14/18 06:00 Pulse Rate 78 12/14/18 06:00 Respiratory Rate 20 12/14/18 06:00 Blood Pressure 120/68 12/14/18 06:00 O2 Sat by Pulse Oximetry (%) 100 12/13/18 21:00 Constitutional: Yes: Well Nourished, No Distress, Calm Eyes: Yes: Conjunctiva Clear, EOM Intact HENT: Yes: Atraumatic, Normocephalic Neck: Yes: Supple, Trachea Midline Cardiovascular: Yes: Regular Rate and Rhythm, S1, S2 Respiratory: Yes: Regular, CTA Bilaterally Gastrointestinal: Yes: Normal Bowel Sounds, Soft. No: Tenderness (incisonal) ...Rectal Exam: Yes: Deferred. No: Guaiac Trace Genitourinary: No: CVA Tenderness - Left, CVA Tenderness - Right Breast(s): No: Dimpling, Mass Musculoskeletal: No: Muscle Pain, Muscle Weakness Extremities: No: Cool, Cyanosis Edema: No Peripheral Pulses WNL: Yes Peripheral Pulses: Left Radial: 2+, Right Radial: 2+, Left Doralis Pedis: 2+, Right Dorsalis Pedis: 2+, Left Femoral: 2+, Right Femoral: 2+ Integumentary: No: Jaundice, Tattoos Wound/Incision: Yes: Clean/Dry, Well Approximated, Open to air Neurological: Yes: Alert, Oriented Psychiatric: Yes: Alert, Oriented Labs: CBC, BMP 12/14/18 06:45 12/14/18 06:45 INR, PTT INR 1.05 (0.83-1.09) 12/13/18 06:00 Problem List - Problems (1) Acute appendicitis Assessment/Plan: 28yo male with acute appendicitis POD#1 s/p laparoscopic appendectomy Diet as tolerated adequate analgesia may discharge at discretion of primary Code(s): K35.80 - UNSPECIFIED ACUTE APPENDICITIS Qualifiers: Acute appendicitis type: with localized peritonitis Appendicitis gangrene presence: unspecified whether gangrene present Appendicitis perforation presence: unspecified whether perforation present Appendicitis abscess presence: without abscess Qualified Code(s): K35.30 - Acute appendicitis with localized peritonitis, without perforation or gangrene (2) Abdominal pain in male Code(s): R10.9 - UNSPECIFIED ABDOMINAL PAIN (3) Leukocytosis Code(s): D72.829 - ELEVATED WHITE BLOOD CELL COUNT, UNSPECIFIED Qualifiers: Leukocytosis type: bandemia Qualified Code(s): D72.825 - Bandemia (4) Nausea Code(s): R11.0 - NAUSEA
[2018-12-14] MEDS: ACETAMINOPHEN 1000 MG/100 ML VIAL (NON FORMULARY) IVPB PRN (09:26)
[2018-12-14] MEDS ORDERED: PANTOPRAZOLE SODIUM 40 MG VIAL IVPUSH SCH (10:00)
--- NOTE | 2018-12-14 12:11 | PN ---
Teaching Attending Note Name of Resident: Sherita Alvarado ATTENDING PHYSICIAN STATEMENT I saw and evaluated the patient. I reviewed the resident's note and discussed the case with the resident. I agree with the resident's findings and plan as documented. SUBJECTIVE: Mr Ellsworth without complaint today OBJECTIVE: Last Vital Signs Temp Pulse Resp BP Pulse Ox 36.9 C 78 20 120/68 100 12/14/18 06:00 12/14/18 06:00 12/14/18 06:00 12/14/18 06:00 12/13/18 21:00 Gen: nad Pulm: ctab CV: rrr Abd: +bs, s/nd, slight TTP Ext: no c/c/e CBC, BMP 12/14/18 06:45 12/14/18 06:45 Please refer to discharge summary but in short Mr Seng Beckford is a 28 year old male who came in with appendicitis. He received one dose of unasyn and was evaluated by surgery. He underwent appendectomy without complication. Case d/w Dr Luis, safe for discharge today. Problem List - Problems (1) Acute appendicitis Code(s): K35.80 - UNSPECIFIED ACUTE APPENDICITIS Qualifiers: Acute appendicitis type: with localized peritonitis Appendicitis gangrene presence: unspecified whether gangrene present Appendicitis perforation presence: unspecified whether perforation present Appendicitis abscess presence: without abscess Qualified Code(s): K35.30 - Acute appendicitis with localized peritonitis, without perforation or gangrene
--- NOTE | 2018-12-14 12:43 | DS ---
Physical Exam: SUBJECTIVE: Patient seen and examined resting in bed nad. afebrile hemodynamically stable. POD 1 s/p la appe. complains of mild abd pain, tolerates regular diet. + flatus. denies n/v/d/c/f/ c. OBJECTIVE: Vital Signs Period Temp Pulse Resp BP Sys/Mccarthy Pulse Ox Last 24 Hr 97.5 F-98.5 F 66-107 14-20 113-137/56-83 96-100 PHYSICAL EXAM GENERAL: The patient is awake, alert, and fully oriented, in no acute distress. HEAD: Normal with no signs of trauma. EYES: PERRL, extraocular movements intact, sclera anicteric, conjunctiva clear. No ptosis. ENT: moist mucous membranes. NECK: supple. LUNGS: Breath sounds equal, clear to auscultation bilaterally HEART: Regular rate and rhythm, S1, S2 ABDOMEN: Soft, mildly tender diffusely, nondistended, normoactive bowel sounds, clean surgical incisions with glue EXTREMITIES: 2+ pulses, warm, well-perfused, no edema. NEUROLOGICAL: Cranial nerves II through XII grossly intact. Normal speech, gait not observed. PSYCH: Normal mood, normal affect. SKIN: Warm, dry LABS Laboratory Results - last 24 hr 12/14/18 12/14/18 06:45 06:45 WBC 10.9 H RBC 4.62 Hgb 14.3 Hct 41.4 MCV 89.7 MCH 31.1 MCHC 34.6 RDW 12.9 Plt Count 247 MPV 8.6 Absolute Neuts (auto) 8.8 H Neutrophils % 80.7 Lymphocytes % 11.6 D Monocytes % 6.1 Eosinophils % 1.2 Basophils % 0.4 Nucleated RBC % 0 Sodium 138 Potassium 4.1 Chloride 102 Carbon Dioxide 30 Anion Gap 6 L BUN 9.2 Creatinine 0.8 Est GFR (CKD-EPI)AfAm 139.91 Est GFR (CKD-EPI)NonAf 120.72 Random Glucose 89 Calcium 8.7 Total Bilirubin 0.8 AST 15 ALT 31 Alkaline Phosphatase 122 H Total Protein 6.5 Albumin 3.4 HOSPITAL COURSE: Date of Admission:12/13/18 Pt. is a 28 y.o. [place] speaking M w/o PMHx. presenting with 5 days of abdominal pain and associated constipation. CT A/P showed acute appendicitis, with stones, appendix dilated to 9mm, inflamed, with stones, fatty liver. he received 1 dose on unasyn and underwent uncomplicated lap appendectomy by dr Luis. he tolerated regular diet, had minimal pain and was dcd abimbola on otc tylenol and ibuprifen. Date of Discharge: 12/14/18 Minutes to complete discharge: 35 Discharge Summary Reason For Visit: ABDOMINAL PAIN, ACUT APPENDICITIS Current Active Problems Abdominal pain (Acute) Abdominal pain in male (Acute) Acute appendicitis (Acute) Leukocytosis (Acute) Nausea (Acute) Condition: Improved - Instructions Diet, Activity, Other Instructions: Postoperative instructions: You had a laparoscopic appendectomy on 12/13/[address] Dash Luis of [facility]. Activity: Resume your usual activities gradually, but no heavy exertion or lifting more than 10-15 pounds for 1 month. Remove dressings 48 hours after surgery; sticky tapes underneath will fall off by themselves. You may shower daily starting then, just pat the incision areas dry. No bath or swimming until skin incisions have healed. Eat lightly at first, but advance to your usual diet as tolerated. Pain: For pain, you may use and alternate Tylenol (acetaminophen) 1-2 pills and/ or ibuprofen 200 mg (1-3 pills) every 6 hours each as needed; this means that you can take one OR the other at 3-hour intervals. If you are prescribed a Tylenol/narcotic combination for severe pain, use it instead of plain Tylenol as needed and switch back when your pain starts decreasing. Do not take more than 4000mg of acetaminophen in a day. Take medications as prescribed or indicated on the labeling. Follow-up: Call Dr. Luis office at [phone] to make your postop appointment (Monday in approximately 2 weeks after surgery). Clinic is held in the [facility] on the first floor of [facility]. Call the office if you have: * increasing pain not responsive to pain medication * fever of 101F or higher * vomiting * unusual or increasing bleeding or drainage from wounds * increasing redness or swelling at wound sites * inability to urinate Also, see your primary medical doctor within 1-2 weeks. Referrals: Dash Luis MD [Staff Physician] - Disposition: HOME Problem List - Problems (1) Abdominal pain Code(s): R10.9 - UNSPECIFIED ABDOMINAL PAIN Qualifiers: Abdominal location: epigastric Qualified Code(s): R10.13 - Epigastric pain (2) Acute appendicitis Code(s): K35.80 - UNSPECIFIED ACUTE APPENDICITIS Qualifiers: Acute appendicitis type: with localized peritonitis Appendicitis gangrene presence: unspecified whether gangrene present Appendicitis perforation presence: unspecified whether perforation present Appendicitis abscess presence: without abscess Qualified Code(s): K35.30 - Acute appendicitis with localized peritonitis, without perforation or gangrene This patient is new to me today: No Emergency Visit: Yes ED Registration Date: 12/13/18 Care time: The patient presented to the Emergency Department on the above date and was hospitalized for further evaluation of their emergent condition. Critical Care patient: No - Discharge Referral Referred to [facility] Med P.C.: No
--- NOTE | 2018-12-14 14:03 | PN ---
Progress Note (short form) - Note Progress Note: Anesthesia post op note. POD#1. S/p Lap appy under GA. Pat seen and examined. VSS. No apparent post anesthesia complications.
[2018-12-14 16:01] VITALS: BP 119/62; PULSE 83; TEMP 98.7
--- NOTE | 2018-12-15 08:14 | OP ---
DATE OF OPERATION: 12/13/2018 PREOPERATIVE DIAGNOSIS: Acute appendicitis with localized peritonitis. POSTOPERATIVE DIAGNOSIS: Acute appendicitis with localized peritonitis. PROCEDURE: Laparoscopic appendectomy. ATTENDING SURGEON: Dash Luis MD YARD JACKER: No one. ADVERTISING TRAFFIC MANAGER: Dilia Vazquez CRNA ANESTHESIA TYPE: General with local, local consisting of 0.5% Marcaine a total of 10 mL given at the port sites. ESTIMATED BLOOD LOSS: 5 mL. INTRAVENOUS FLUID ADMINISTERED: Crystalloid, 500 mL. Operative report is dictated. SPECIMEN: Appendix. BRIEF FINDINGS: Patient had an inflamed appendix, retrocecal. No sign of gross perforation or exudate. . INDICATIONS: Patient is a 28-year-old male presenting with right lower quadrant pain 2 days worsening, loss of appetite, leukocytosis, and CT confirmed the presence of an inflamed appendix. He was counseled regarding risks, benefits, and alternatives to laparoscopic approach to appendectomy. He signed informed consent and was taken to the procedure. DESCRIPTION OF PROCEDURE: The patient was brought to the operating room. He was placed in supine position on the operating table with lower extremities had SCDs to compression. Patient was induced with general anesthesia, endotracheally intubated by Anesthesia without incident. At which point, the anterior abdominal wall was prepared. It was clipped, prepped, and draped in standard surgical fashion. We proceeded with a formal time-out identifying the operative site and procedure. Once all parties were in agreement, we began first with a Barrie entry into the abdomen in an infraumbilical position in the midline. It was incised with a 15-blade scalpel, deepened and widened through the subcutaneous tissue with Bovie cautery to the anterior fascia of the rectus muscles, which were then elevated into the surgical field, and a blunt entry was made a the abdomen with a clamp. Finger was used to clear abdominal viscera, and a 12-mm Barrie port was then installed into the abdomen. The pneumoperitoneum was then established to 15 mmHg. At which point, we began with an inspection of the entry site, which appeared atraumatic. Additional port sites were placed in the suprapubic position and in the left lower quadrant in line with the anterior and superior iliac spine, midclavicular line. We began then with exploration with the patient in Trendelenburg position. The small intestine and omentum were swept away from the cecum, and then, the cecum was everted revealing the base of the appendix at the tinea coli. The mid body of the appendix was identified and grasped with a grasper from the lower operative port, and a plane was developed between the mesoappendix and the appendix. The camera was resighted to the left lower quadrant port site, and a stapler Endo SAWYER, size 45 with a purple load, was then used to transect the base of the appendix through the window created in the mesoappendix. Once stapled at the base, the remainder of the appendix was taken in its entirety along the mesoappendix using the LigaSure device. Once complete, the appendix was then retrieved from the umbilical port using an EndoCatch bag. Additional irrigation of the site was not required. The specimen was retrieved from the abdomen and passed off for pathologic diagnosis. The patient was returned to the level position. Remainder of the contents from the dissection was suctioned from the abdomen. The port sites were then ablated, Barrie entry, with a [id number] 0 Vicryl in a figure-of-8. The remainder ports were removed under direct visualization, and pneumoperitoneum was relieved. The skin was closed after irrigating each port site with sterile irrigation fluid with 4-0 Vicryl in interrupted fashion at the 5-mm trocar sites and at Barrie entry in a running subcuticular. Dermabond was placed after the skin was cleaned. Patient was awoken from general anesthesia having tolerated the procedure well. All instrument counts were correct. approximately was stable throughout the procedure and returned to recovery in stable condition. MD MARIA INES Peña/[id number]
--- NOTE | 2018-12-19 15:43 | PATH ---
Surgical Pathology Report Patient Name: ALEKS HAQUE Med. Rec. #: [id number] /Age/Gender: 1990 (Age: 28) / M Account: [id number] Location: [address] [place] [id number]/[facility] Taken: 12/13/2018 Received: 12/14/2018 Reported: 12/19/2018 Physicians: Marianne Peña DO Specimen(s) Received APPENDIX Clinical History Acute appendicitis Final Diagnosis APPENDIX, APPENDECTOMY: ACUTE APPENDICITIS AND PERIAPPENDICITIS. Electronically Signed Nola Paredes M.D. Gross Description Received in formalin, labeled "appendix," is a 6.5 cm. in length vermiform appendix with a stapled margin of resection and abundant attached fat. The serosa is fiore and smooth. Sectioning reveals focal fecal material within the lumen. The wall of the appendix averages 0.1 cm. in thickness. Php Software Engineer sections are submitted in three cassettes. /12/17/2018 [facility]12/17/2018
== END 2018-12-14 15:50 | disposition home or self-care (01) | DRG 225 ==
LOC: JER 23:12 → JERBED 12-13 03:51 → J6S 12-13 11:46
PROVIDERS: ADMIT Internal Medicine; ATTEND Internal Medicine
PROC: 0DTJ4ZZ Resection of Appendix, Percutaneous Endoscopic Approach (ICD-10-PCS; principal; 2018-12-13 14:30)
DX: K35.30 Acute appendicitis with localized peritonitis, without perforation or gangrene (principal); R10.13 Epigastric pain; F17.210 Nicotine dependence, cigarettes, uncomplicated; K76.0 Fatty (change of) liver, not elsewhere classified; D72.829 Elevated white blood cell count, unspecified; R11.0 Nausea
CPT/HCPCS: 36415; 74177-TC; 76705-TC; 80048; 80053; 83690; 83735; 84100; 85025; 85610; 86850; 86900; 86901; 88304-TC; 93005; 93010; 94760; 99285-25; J0131

== ENCOUNTER 2020-06-01 11:13 | Emergency (ER) | payer OTHER ==
[2020-06-01 11:35] VITALS: BP 124/78; PULSE 92; TEMP 97.9; BMI 25.8
[2020-06-01] MEDS ORDERED: KETOROLAC TROMETHAMINE 30 MG/1 ML VIAL IM ONE (11:59)
[2020-06-01] MEDS ORDERED: KETOROLAC TROMETHAMINE 30 MG/1 ML VIAL ONE (12:07)
== END 2020-06-01 12:35 | disposition home or self-care (01) ==
LOC: JERFT 11:13
PROC: 3E0233Z Introduction of Anti-inflammatory into Muscle, Percutaneous Approach (ICD-10-PCS; principal; 2020-06-01)
DX: S93.491A Sprain of other ligament of right ankle, initial encounter (principal)
CPT/HCPCS: 73610-TC-RT-FY; 73630-TC-RT-FY; 99284-25

== ENCOUNTER 2023-07-20 11:25 | Emergency (ER) | payer OTHER ==
[2023-07-20 13:11] LABS: URINE APPEARANCE CLEAR; URINE BILIRUBIN NEGATIVE (NEGATIVE); URINE COLOR YELLOW; URINE GLUCOSE (UA) NEGATIVE (NEGATIVE); URINE KETONE NEGATIVE (NEGATIVE); URINE LEUK ESTERASE NEGATIVE (NEGATIVE); URINE NITRITE NEGATIVE (NEGATIVE); URINE PROTEIN NEGATIVE (NEGATIVE)
[2023-07-20 14:29] VITALS: BP 146/88; PULSE 89; RESP 18; TEMP 98.3; BMI 24.3
== END 2023-07-20 13:09 | disposition home or self-care (01) ==
LOC: JERFT 11:25 → JER 11:25 → JERFT 13:09
DX: R21 Rash and other nonspecific skin eruption (principal); B36.9 Superficial mycosis, unspecified
CPT/HCPCS: 36415; 81003; 87086; 87491; 87591; 99283-25